=== PATIENT | male | born 1955 | race Caucasian/White ===

== ENCOUNTER 2016-11-07 18:32 | Inpatient (IN) | payer OTHER ==
--- NOTE | ~2016-11-07 | CO ---
Unit #: [id number] #: [id number] Patient: PABLO TUTTLE [id number] [place], [place] [address] [id number] I MR#: [id number] NAME: PABLO TUTTLE ROOM: 549 Age: 61 Sex: M Admission Date: 11/07/2016 : 1955 Attending Physician: Rosa M Patten M.D. Consultation Date: 11/09/2016 CONSULTATION REPORT DICTATED FOR Dr. Denisse Mckinney of [facility]. REASON FOR CONSULTATION Atrial fibrillation. HISTORY OF PRESENT ILLNESS The patient is a 61-year-old white male with a history of cirrhosis; questionable history of TB; arthritis; chronic back pain; the patient has tobacco abuse; history of heroin, cocaine, and methamphetamines. Although, the patient does not see a medical professional and has not seen a doctor in many years he states. The patient presented to the [facility] ED on 11/07/2016 at 5:00 p.m. with complaints of back pain, cough, fever of 100.4, shortness of breath, and right-sided chest pain as well as a productive cough with whitish yellowish sputum. The patient also complains of some diarrhea prior to admission. The patient was found to have pneumonia, was thought to be septic, and urinary tract infection with gram-negative rods. The patient also has diagnosed with acute kidney injury that has resolved, elevated liver enzymes which are improving. The patient also has rhabdomyolysis and malnutrition. The patient states that he lives in his car and has for about the past year. He does not see any medical tech regularly. Echo done on 11/08/2016 showed an EF of 55%, thickened anterior mitral leaflet, mild TR with an RVSP of 26. The patient has not had any other cardiac workup that he can remember. The patient has been noted to be in sinus rhythm since admission and roughly at 6:00 a.m. this morning, the patient was noted to be in AFib. A 12-lead EKG was obtained and did confirm the patient is in atrial fibrillation with RVR with a rate of 118. PAST MEDICAL HISTORY 1. Cirrhosis. 2. History of TB questionable. 3. Arthritis. 4. Chronic back pain. PAST SURGICAL HISTORY Includes, 1. Left index finger surgery. 2. Broken jaw surgery. 3. Distal right index finger amputation. Unit #: [id number] #: [id number] Patient: PABLO TUTTLE SOCIAL HISTORY Positive for tobacco. Positive for heroin, cocaine, and methamphetamines. The patient denies any alcohol abuse. The patient lives in his car, where he occasionally goes to a friend's house to take a shower. He has lived in his car for about the past year. FAMILY HISTORY The patient is unsure of any family history of coronary artery disease. REVIEW OF SYSTEMS See HPI. PHYSICAL EXAMINATION GENERAL: This is a 61-year-old white male, who is alert and oriented x3, in no apparent distress. VITAL SIGNS: Blood pressure 140/80, temperature 98.5, respirations 16, and pulse 107. HEENT: Pupils are equal, round, and reactive. Oral mucosa is moist. NECK: No JVD. No thyromegaly. No lymphadenopathy. No carotid bruits. HEART: S1, S2. No S3 or S4. No clicks, no rubs, no murmurs. LUNGS: Diminished rhonchi in the bases. ABDOMEN: Soft, bowel sounds positive, nontender, and nondistended. EXTREMITIES: No swelling. NEUROLOGIC: No neuro deficits noted. DIAGNOSTIC STUDIES LABORATORY RESULTS: Include BNP of 243 and then 148. HIV was nonreactive. Strep pneumo antigen in the urine was positive. UA had positive leukocyte. Urine culture showed gram-negative rods. Urine drug screen was positive for opiates and amphetamines. Lactic was 4.5, then 2.6, then 4, then 3, then 1.3. Blood cultures, positive for Staph aureus. Troponin 0.06, then less than 0.05, then 0.04, then 0.03. Sodium 134, potassium 4, chloride 103, CO2 of 23, BUN 27, creatinine 0.7, glucose 90. White count 11, hemoglobin 12.9, hematocrit 37.6, platelets 136. IMAGING STUDIES: MRI showed mild grade 1 spondylolisthesis of L4 and L5. Mild marrow edema at the L5 level. Chest x-ray did not show any kind of pulmonary edema. CARDIOVASCULAR STUDIES: EKG showed an EF of 55% with a thickened anterior mitral leaflet. No evidence of MR. No pericardial effusion with mild TR with RVSP of 26. HOME MEDICATIONS There are no home medications listed. ALLERGIES Pyridium. IMPRESSION 1. Pneumonia. 2. Urinary tract infection. 3. New-onset atrial fibrillation. 4. Acute kidney injury. 5. Elevated LFTs. 6. Rhabdomyolysis. 7. Protein malnutrition. Unit #: [id number] #: [id number] Patient: PABLO TUTTLE PLAN We will plan to repeat blood cultures. We will check thyroid functions today. The patient has already been started on low-dose Coreg. We will place parameters to hold Coreg. We will plan for a MEGAN tomorrow to evaluate for any possible infection in the heart. We will obtain a fasting lipid profile tomorrow. We will recheck EKG as well as labs in the morning. bog worker to see the patient to help with medications. We will increase Lovenox to therapeutic subcu dose for now. No long-term need for anticoagulation due to low CHADS score at this time as well as any questionable compliance issues. The patient states that he does not get medications, so that he can get his drugs. Thank you for having us to see this patient. Further recommendations pending current workup. Dictated by... KYARA Casas TD: 11/10/2016 03:45 JOB #: [id number] CONSULTATION REPORT X X CONSULTATION REPORT
--- NOTE | ~2016-11-07 | HP ---
Unit #: [id number] #: [id number] Patient: PABLO TUTTLE [id number] [address] [place], [place] [address] [id number] I MR#: [id number] NAME: PABLO TUTTLE ROOM: 06214 Age: 61 Sex: M Admission Date: 11/07/2016 : 1955 Attending Physician: Dang Retana M.D. Primary Care Physician: No Primary Care Physician HISTORY AND PHYSICAL CHIEF COMPLAINT Weakness, back pain, cough, fever, shortness of breath. DISCUSSION This is a 61-year-old gentleman who has a past medical history significant for history of cirrhosis, history of questionable tuberculosis, (inactive, was told 4 years ago), arthritis, chronic back pain, history of polysubstance abuse. He was brought to the emergency room with the chief complaint of back pain, weakness, unable to walk. He was found to have fever of 104.2. He said that he feels very sick, had been having back pain, fever, cough, shortness of breath. He described shortness of breath, whitish/yellowish phlegm, cough. He said, again, he feels very sick. Also, he said he had been having back pain but denies nausea, vomiting, diarrhea, blood in the stool, headache or any other complaint. PAST MEDICAL HISTORY 1. History of cirrhosis. 2. Questionable history of tuberculosis. 3. History of arthritis. 4. Chronic back pain, degenerative disk disease of spine. PAST SURGICAL HISTORY 1. Left index finger amputation. 2. History of surgery for broken jaw. 3. Distal right index finger amputation. MEDICATIONS We did call the pharmacy. Not taking any medications for one year. Did not fill any medications for one year. ALLERGIES Pyridium. SOCIAL HISTORY He said he smokes 1 pack daily. Also uses heroin, cocaine, methamphetamine. Denies alcohol. He said he used these drugs 2 days ago. REVIEW OF SYSTEMS A 14-point review of systems is negative except as in history of present illness. FAMILY HISTORY Negative for his presenting illness. Unit #: [id number] #: [id number] Patient: PABLO TUTTLE PHYSICAL EXAMINATION GENERAL: Middle-aged man lying in bed comfortably. Currently not in any distress. CURRENT VITALS: His current temperature is 104.2, heart rate 116, respiratory rate 16, blood pressure 144/78, oxygen saturation 100%. HEENT: Pupils are equal and reactive to light and accommodation. Head is normocephalic and atraumatic. Pharynx normal. NECK: Neck is supple. No JVD. HEART: S1, S2. Tachycardia. LUNGS: Bilateral rhonchi positive. ABDOMEN: Abdomen is soft, nontender, nondistended. Bowel sounds are positive. SKIN: No lesions. Normal color. Warm. Dry. No rash. NEUROLOGIC: He is alert, oriented x2. Cranial nerves II-XII intact. Normal motor, 4/5 motor power on both sides. PSYCHIATRIC: He has flat affect. DIAGNOSTIC STUDIES LABORATORY WORKUP: Troponin less than 0.05. Urine toxicology is positive for amphetamine, positive for opiate. UA shows cloudy appearance, leukocyte esterase trace, WBC 2-5. Chemistry - Sodium 127, potassium 4.2, glucose 170, BUN 60, creatinine 3.4. CK total 8,462, albumin 3, lipase 16, magnesium 1.6. HIV nonreactive. BNP 243. Lactic acid level 4.5. White count 10, hemoglobin 16, hematocrit 47, platelets 170. Troponin less than 0.06. INR 1.3. ABG shows pH 7.4, pCO2 32, O2 59. IMAGING: Chest x-ray shows bilateral infiltrate right mid-lower lung zone and left lung infiltrate. MRI of the lumbar spine shows mild multilevel degenerative disk disease. Mild spondylosis. Negative for any sepsis. ASSESSMENT 1. Septic shock. 2. Pneumonia. 3. Acute kidney injury. 4. UTI. 5. Acute rhabdomyolysis. 6. Hyponatremia. 7. History of cirrhosis. 8. Chronic back pain. 9. Polysubstance abuse. PLAN 1. Admit to ICU. 2. Ask pulmonary, Dr. Multani, to evaluate and nephrology, Dr. Rojas, to evaluate. 3. Will start the patient on Zosyn 3.375 grams IV q.8 hours, vancomycin pharmacy to dose. The patient received 1 dose of tobramycin. 4. Start on IV fluid with normal saline and sepsis protocol. 5. Start the patient also on DuoNeb q.4 hours. 6. Will get two-D echo to rule out endocarditis. 7. Start the patient on Lovenox for DVT prophylaxis 30 "mL per hour." 8. Repeat electrolytes in the morning. Dictated by Unit #: [id number] #: [id number] Patient: PABLO TUTTLE M.D. RKG/jaydon TD: 11/08/2016 10:39 JOB #: [id number] HISTORY AND PHYSICAL X X HISTORY AND PHYSICAL
--- NOTE | ~2016-11-07 | CO ---
Unit #: [id number] #: [id number] Patient: PABLO TUTTLE [id number] [address] [place], [place] [address] [id number] I MR#: [id number] NAME: PABLO TUTTLE ROOM: 549 Age: 61 Sex: M Admission Date: 11/07/2016 : 1955 Attending Physician: Dang Retana M.D. Consultation Date: 11/08/2016 CONSULTATION REPORT REASON FOR CONSULTATION Acute kidney injury. Thank you very much for this consultation. HISTORY OF PRESENT ILLNESS The patient is a 61-year-old, white male, who carries a past medical history of polysubstance abuse, cirrhosis, chronic arthritis, and possible history of tuberculosis, who presented to the emergency room with fever, weakness, and malaise, which has been progressive over the past few days. He states he has had some nausea. No vomiting. He has not had any diarrhea. He has had shortness of breath with productive cough along with his fevers. Upon admission, he was noted to have a significant acute kidney injury with BUN of 60 and creatinine 3.4. He denies any history of chronic kidney disease. He states that as a child, he had some sort of a kidney problem that required surgery. However, he is not sure of the specifics. He otherwise denies any hematuria or dysuria. No NSAID use. No other complaints. PAST MEDICAL HISTORY As outlined in the HPI. HOME MEDICATIONS Per his med rec. FAMILY HISTORY Noncontributory. SOCIAL HISTORY Has a history of polysubstance abuse. REVIEW OF SYSTEMS Twelve system review of systems is negative except as per HPI. PHYSICAL EXAMINATION VITAL SIGNS: His blood pressure is 124/78, heart rate 77, respirations 17, T current 97.4. GENERAL: He is a disheveled male, in no acute distress. HEENT: Head, normocephalic, atraumatic. ENT, pupils equal, round, and reactive to light. NECK: Supple. No JVD. LUNGS: Coarse bilaterally with scattered rhonchi. HEART: Tachy. No murmurs, gallops, or rubs. ABDOMEN: Soft, nontender, with positive bowel sounds. Unit #: [id number] #: [id number] Patient: PABLO TUTTLE EXTREMITIES: He has no edema. NEUROLOGIC: Cranial nerves II through XII intact to testing. Gait was not assessed. DIAGNOSTIC STUDIES LABORATORY RESULTS: Sodium 128, potassium 4.2, chloride 97, bicarb 20, BUN 56, creatinine 2.3, glucose 204, calcium 7.1. CK of 8400. Lactate of 4. INR 1.3. White count 13.4, hemoglobin 13.8, platelets 151. Lactate 4. INR 1.3. ABG showed a pH of 7.4, pCO2 of 32, pO2 of 59. Tox screen positive for opioids and amphetamines. IMAGING STUDIES: Chest x-ray shows bilateral pneumonia. IMPRESSION 1. Acute kidney injury likely prerenal azotemia versus acute tubular necrosis from sepsis. His renal function has already started improving with volume resuscitation making prerenal azotemia most likely. 2. Hyponatremia. 3. Lactic acidosis. 4. Pneumonia. 5. Hypocalcemia. 6. Polysubstance abuse. 7. Rhabdomyolysis. PLAN Continue volume resuscitation with IV fluids consisting of normal saline at the current time. Continue antibiotics per primary. Avoid nephrotoxins and dose adjust all medications for reduced GFR. Renal ultrasound is pending. We will follow up urinalysis as well and have further recommendations as hospital course progresses. Dictated by... Darren Hutchinson M.D. RENAN/noris TD: 11/08/2016 22:01 JOB #: [id number] CONSULTATION REPORT X Darren Hutchinson MD X CONSULTATION REPORT
--- NOTE | ~2016-11-07 | MR113 ---
[facility] A Service of [facility] & [facility] RADIOLOGY TEXT RESULTS PATIENT: PABLO TUTTLE LOCATION: [facility] 549- : 56 UNIT #: [id number] AGE: [address]: Dang Retana MD SEX: M ORDER DR: [id number] [facility] [address] [facility]. [place], [place] [address] [id number] I MR#: [id number] Acc #: [id number] NAME: PABLO TUTTLE : 1955 SEX: M STUDY DATE/TIME: UNIT: CEDOF ROOM: 08619 STUDY DESCRIPTION: MR Lumbar Wo Contrast Attending Physician: Dang Retana M.D. Ordering Physician: Luci Julien M.D. Primary Care Physician: Primary Care Physician No MEDICAL IMAGING REPORT This report is preliminary unless electronic signature is present EXAM MRI lumbar spine 11/07 at 1951 hours INDICATIONS Weakness and fever for 2 days. Low back pain for 10 years. TECHNIQUE Axial and sagittal multi-sequence images were obtained through the lumbar spine without contrast in a high field strength magnet. COMPARISON No comparison MRI. FINDINGS There is subtle grade 1 anterolisthesis of L4 on L5. Alignment is otherwise normal. The conus terminates at T12 and is normal in caliber and signal intensity. Reactive endplate changes are noted on both sides of the L5-S1 disc. There is some mild edema in the pedicle on the left side at L5. This may indicate a stress reaction. The bone marrow signal is otherwise normal. At L5-S1, there is mild bilateral facet arthropathy. There is a mild posterior broad-based disc bulge. No central canal stenosis is seen. The there is very mild bilateral foraminal narrowing right greater than left. At L4-5, there is hypertrophic facet arthropathy. Broad-based posterior disc bulge is present with some uncovering of the disc. These findings result in mild bilateral neural foraminal narrowing, but no central stenosis. At L3-4, there is bilateral facet arthropathy with mild posterior broad-based disc bulge. This results in mild bilateral neural foraminal narrowing but no central stenosis. [facility] A Service of [facility] RADIOLOGY TEXT RESULTS PATIENT: PABLO TUTTLE LOCATION: C5B 549-01 : 56 UNIT #: [id number] AGE: [address]: Dang Retana MD SEX: M ORDER DR: At L2-3, there is facet arthropathy. No significant disc bulge is seen. No central canal or neural foraminal stenosis. At L1-2, the disc is normal. There is some mild facet disease. There is no central canal or neural foraminal stenosis. The lower 2 thoracic discs are normal on the sagittal images provided. IMPRESSION 1. No fractures are seen. There is mild grade 1 spondylolisthesis at L4-5. 2. Mild marrow edema is noted in the left L5 pedicle. This may reflect a stress reaction. Marrow signal is otherwise within normal limits except for reactive endplate changes at L5-S1. 3. Mild multilevel degenerative disc disease with facet arthropathy as detailed above resulting in relatively mild bilateral neural foraminal narrowing at multiple levels. No central canal stenosis is seen. 4. The conus and cauda equina are normal. Dictated by... Dominick Denney Jr., M.D. THIS IS AN ELECTRONICALLY VERIFIED REPORT Dominick Denney Jr., M.D. at 11/08/2016 9:30 PM RLChava/albaro TD: 11/08/2016 14:22 JOB #: [id number] MEDICAL IMAGING REPORT COPY
--- NOTE | ~2016-11-07 | EKG ---
PATIENT: PABLO TUTTLE UNIT #: [id number] Ventricular Rate: 81 BPM Atrial Rate: 81 BPM P-R Interval: 148 ms QRS Duration: 98 ms Q-T Interval: 366 ms QTC Calculation(Bezet): 425 ms P Bryant: 70 degrees Calculated R Bryant: 78 degrees Calculated T Bryant: 58 degrees Diagnosis Line: Normal sinus rhythm Diagnosis Line: Incomplete right bundle branch block Diagnosis Line: Borderline ECG Diagnosis Line: When compared with ECG of 07-NOV-2016 18:19, Diagnosis Line: (unconfirmed) Diagnosis Line: QT has shortened Diagnosis Line: Confirmed by STEPHEN HOWARD MD ([id number]) on Diagnosis Line: 11/10/2016 4:05:23 PM INTERPRETING MD: LEE ALEJO
--- NOTE | ~2016-11-07 | DS ---
Unit #: [id number] #: [id number] Patient: PABLO TUTTLE [id number] [address] [address] [id number] I MR#: [id number] NAME: PABOL TUTTLE ROOM: 549 Age: 61 Sex: M Admission Date: 11/07/2016 : 1955 Discharge Date: 11/11/2016 Attending Physician: Rosa M Patten M.D. Primary Care Physician: Primary Care Physician No DISCHARGE SUMMARY ADDENDUM Please note, the patient contacted me after the last dictation. Outpatient antibiotics at short-stay were arranged and I did order a 2-gram IV Rocephin prior to discharge but patient did not wait for this medication; thus, he has been inadequately treated today with antibiotics. He did not wait for his discharge instructions. I believe he did not wait for his prescriptions and is high risk for readmission. Though discharged and paperwork was done, it was not signed by patient and in my opinion he left the hospital against medical advice. Dictated by... Rosa M Patten M.D. MICHAEL/sarika TD: 11/11/2016 17:07 JOB #: [id number] DISCHARGE SUMMARY X RosaM Patten MD X DISCHARGE SUMMARY
--- NOTE | ~2016-11-07 | US77 ---
[facility] A Service of [facility] & [facility] RADIOLOGY TEXT RESULTS PATIENT: PABLO TUTTLE LOCATION: C5B 549-01 : 57 UNIT #: [id number] AGE: [address]: Rosa M Patten MD SEX: M ORDER DR: [id number] [facility] [address] [facility]. [place], [place] [address] [id number] I MR#: [id number] Acc #: [id number] NAME: PABLO TUTTLE : 1955 SEX: M STUDY DATE/TIME: 11/08/2016 8:19 UNIT: C5B ROOM: [facility] STUDY DESCRIPTION: US Kidney Bilateral Complete Attending Physician: Dang Retana M.D. Ordering Physician: Dominick Agarwal M.D. Primary Care Physician: Primary Care Physician No MEDICAL IMAGING REPORT This report is preliminary unless electronic signature is present EXAM Renal ultrasound. INDICATIONS Back pain for 5-6 days. Patient has a GFR of 31 and creatinine 2.3. TECHNIQUE Bradley-scale and color Doppler sonographic images were obtained through the kidneys and bladder. FINDINGS Both kidneys are normal in appearance with no solid or cystic renal masses seen. There is no hydronephrosis. Urinary bladder is not well assessed, as it is decompressed with a Florez catheter. Patient is incidentally noted to have 2 echogenic foci within the right lobe of the liver. The larger measures up to 1.9 x 2.6 x 1.7 cm, while the smaller measures about 1.3 x 0.9 x 1.1 cm. On the prior CTs dating back to 2011, this patient has been noted to have enhancing foci throughout the liver. 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 As has been discussed on prior examinations, further evaluation with liver protocol CT or MRI on a non-emergent outpatient basis is recommended to exclude malignancy. IMPRESSION 1. Normal appearance to the kidneys bilaterally. 2. Bladder cannot be assessed due to presence of a Florez catheter. 3. This patient has 2 hyperechoic foci within the liver. On prior CTs dating back to 2011, this patient has had enhancing foci within the liver which were felt to be most in keeping with hemangiomata but were incompletely evaluated on those examinations. Further evaluation with liver protocol CT or MRI on a non-emergent outpatient [facility] A Service of [facility] & [facility] RADIOLOGY TEXT RESULTS PATIENT: PABLO TUTTLE LOCATION: [facility] 549-01 : [birth year] UNIT #: [id number] AGE: [address]: Rosa M Patten MD SEX: M ORDER DR: basis is recommended. Dictated by... Winter Guerrero M.D. THIS IS AN ELECTRONICALLY VERIFIED REPORT Winter Guerrero M.D. at 11/10/2016 9:17 AM AFF/psc TD: 11/08/2016 19:58 JOB #: [id number] MEDICAL IMAGING REPORT COPY
--- NOTE | ~2016-11-07 | DS ---
Unit #: [id number] #: [id number] Patient: PABLO TUTTLE [id number] [address] [address] [id number] I MR#: [id number] NAME: PABLO TUTTLE ROOM: 549 Age: 61 Sex: M Admission Date: 11/07/2016 : 1955 Discharge Date: 11/11/2016 Attending Physician: Rosa M Patten M.D. Primary Care Physician: No Primary Care Physician DISCHARGE SUMMARY PRINCIPAL DIAGNOSES 1. Septic shock secondary to multiple infections. 2. Methicillin sensitive Staphylococcus aureus bacteremia secondary to intravenous drug abuse. 3. Bilateral lower lobe pneumonia with Strep pneumoniae. 4. Escherichia coli urinary tract infection. 5. Atrial fibrillation with rapid ventricular response, now converted to normal sinus rhythm. 6. Lactic acidosis now resolved. 7. Polysubstance abuse including heroin, cocaine and methamphetamine. 8. Tobaccoism. 9. Acute kidney injury, prerenal now resolved, discharge creatinine 0.9. 10. Acute rhabdomyolysis secondary to amphetamine abuse now resolved. 11. Transaminitis resolved. 12. Hypocalcemia. 13. Diarrhea secondary to infection, plus or minus opiate withdrawal now resolved. 14. Cirrhosis with pending viral hepatitis panel. 15. Thrombocytopenia stable. 16. Moderate protein malnutrition. 17. Tobaccoism. 18. Systolic congestive heart failure, acute with ejection fraction of 45%. CONSULTANTS Dr. Manrique, pulmonology; Dr. Palacio, Infectious disease; Dr. Wahl, nephrology; Dr. Mckinney, cardiology. PROCEDURES 1. 2-Dimensional echocardiogram on 11/08/2016 with ejection fraction of 55%. No evidence of mitral regurgitation. 2. Transesophageal echocardiogram on 11/10/2016 with ejection fraction of approximately 45%. There is spontaneous echo contrast in the right and left atria. No evidence of clot in left atrial appendage. No evidence of PFO or atrial septal defect. Mild to moderate mitral and tricuspid regurgitation. No evidence of vegetation. Moderate atherosclerosis of aorta noted. 3. Chest x-ray on 11/07/2016 with extensive air space disease in the right mid to lower lung zone with dense opacification in the right lower lung zones greater than left. There is severe bilateral pneumonia noted. 4. MRI of the lumbar spine without contrast on 11/07/2016 with no evidence of fracture. There is grade 1 spondylolisthesis at L4-5. There is mild marrow edema in the L5 pedicle that is felt to be stress Unit #: [id number] #: [id number] Patient: PABLO TUTTLE reaction. Multilevel degenerative disc disease with facet arthroplasty noted. No evidence of canal stenosis. 5. Bilateral renal ultrasound on 11/08/2016 with normal appearance of the kidney. There is hemangioma in the liver. CLINICAL HISTORY AND HOSPITAL COURSE Mr. Tuttle is a 61-year-old homeless male who presents to the emergency department with complaints of cough, fever, and back pain. In the emergency department he is found to have a fever of greater than 104. Chest x-ray revealed significant bilateral pneumonia right greater than left. Per his procalcitonin was also found to be significantly elevated at greater than 188. The patient was placed on aggressive IV fluids in addition to antibiotics and initially admitted to the ICU. Fortunately with antibiotic therapy and IV hydration, the patient's blood pressure and signs and symptoms significantly improved and he was subsequently transferred to telemetry from the ER. Urine strip pneumo antigen was ultimately positive and again patient was continue on antibiotics. Urinalysis was also concerning for infection and urine culture also grew E. coli. Blood cultures done upon admission; however, revealed methicillin sensitive Staph aureus, indicating patient had multiple and significant infections. His pneumonia clinically appears to be resolving and his urinary tract infection is being adequately treated. He did undergo a MEGAN given his findings of MSSA in the blood but this is negative for endocarditis. ID was consulted and is recommending antibiotics therapy as outlined below. I will note, patient had an MRI given his complaints of back pain upon presentation but abnormal findings are not felt to represent any sort of underlying osteomyelitis and sed rate was only mildly elevated at 55, making osteomyelitis less likely. Pulmonology was consulted given there was initial concerns about admission to the ICU. From a pulmonary standpoint the patient remains stable. Nephrology was consulted given patient's acute kidney injury. Upon presentation his creatinine was 3.4 but with hydration creatinine was normalized. A urinalysis reveals only 1+ protein. His renal function will be followed up as an outpatient. During hospitalization the patient developed some tachycardia, which initially appeared to be sinus tachycardia but ultimately patient converted to atrial fibrillation. He was placed on low dose Coreg and cardiology evaluated the patient. At this point he is now converted back to normal sinus rhythm on Coreg and he will be maintained on Coreg. I am going to send him home on aspirin therapy. Will discuss with cardiology sending him home on aspirin therapy. He is a poor candidate for anticoagulation due to his polysubstance abuse and poor compliance. Patient is otherwise today clinically much much improved and will be discharge home with IV antibiotics. DISCHARGE CONDITION Stable. DISCHARGE STATUS Discharge to home. DISCHARGE MEDICATIONS 1. Rocephin 2 IV q. 24 hours x12 doses. Patient's last dose will be on Unit #: [id number] #: [id number] Patient: PABLO TUTTLE 11/23/2016. 2. Coreg 12.5 mg p.o. b.i.d. with one refill given. 3. Lisinopril 2.5 mg daily. 4. Os-Mike 500 plus D, one twice daily. DISCHARGE INSTRUCTIONS The patient was instructed to follow a heart healthy diet. He is to refrain from any further tobacco use and IV drug abuse. He can increase activity as tolerated. FOLLOWUP The patient is being established with medicaid and will followup with assigned practitioner. [facility] is [facility]. TIME SPENT ON DISCHARGE 37 minutes. Dictated by... Rosa M Patten M.D. MICHAEL/alfredo TD: 11/11/2016 12:12 JOB #: [id number] DISCHARGE SUMMARY X Rosa M Patten MD X DISCHARGE SUMMARY
--- NOTE | ~2016-11-07 | EKG ---
PATIENT: PABLO TUTTLE UNIT #: [id number] Ventricular Rate: 118 BPM Atrial Rate: 105 BPM QRS Duration: 98 ms Q-T Interval: 292 ms QTC Calculation(Bezet): 409 ms Calculated R [place]: 72 degrees Calculated T [place]: 65 degrees Diagnosis Line: Atrial fibrillation with rapid ventricular Diagnosis Line: response Diagnosis Line: Incomplete right bundle branch block Diagnosis Line: Abnormal ECG Diagnosis Line: When compared with ECG of 09-NOV-2016 06:06, Diagnosis Line: (unconfirmed) Diagnosis Line: Incomplete right bundle branch block is now Diagnosis Line: Present Diagnosis Line: Confirmed by STEPHEN HOWARD MD ([id number]) on Diagnosis Line: 11/10/2016 4:10:56 PM INTERPRETING MD: LEE ALEJO
--- NOTE | ~2016-11-07 | EKG ---
PATIENT: PABLO TUTTLE UNIT #: [id number] Ventricular Rate: 134 BPM Atrial Rate: 134 BPM P-R Interval: 192 ms QRS Duration: 86 ms Q-T Interval: 272 ms QTC Calculation(Bezet): 406 ms P [place]: 99 degrees Calculated R [place]: 67 degrees Calculated T [place]: 62 degrees Diagnosis Line: Diagnosis Line: Atrial fibrillation Diagnosis Line: When compared with ECG of 08-NOV-2016 18:39, Diagnosis Line: (unconfirmed) Diagnosis Line: Diagnosis Line: Diagnosis Line: Vent. rate has increased BY 53 BPM Diagnosis Line: Incomplete right bundle branch block is no longer Diagnosis Line: Present Diagnosis Line: Confirmed by STEPHEN HOWARD MD ([id number]) on Diagnosis Line: 11/10/2016 4:07:50 PM INTERPRETING MD: LEE ALEJO
--- NOTE | ~2016-11-07 | CO ---
Unit #: [id number] #: [id number] Patient: PABLO TUTTLE [id number] [address] [address] [id number] I MR#: [id number] NAME: PABLO TUTTLE ROOM: 549 Age: 61 Sex: M Admission Date: 11/07/2016 : 1955 Attending Physician: Rosa M Patten M.D. Primary Care Physician: No Primary Care Physician Consultation Date: 11/10/2016 CONSULTATION REPORT REASON FOR CONSULTATION Antibiotic management and questionable discitis. HISTORY OF PRESENT ILLNESS This is a 61-year-old male that comes to the hospital after a several day history of right sided chest pain, shortness of breath, productive sputum with yellow phlegm and back pain. When he was in the emergency room, he was found to have a fever or greater than 104 degrees Fahrenheit. He was also noted to have some acute kidney injury and rhabdomyolysis. The patient was admitted to the hospital. He was placed on vancomycin and Zosyn. Workup revealed that patient had bilateral pneumonia per the chest film and Staph aureus in his blood stream and questionable urinary tract infection. ID was asked to evaluate for further management and antibiotic assistance. PAST MEDICAL HISTORY Includes: 1. Polysubstance abuse including heroin several days prior to admission. 2. He also says that he has positive tobacco and alcohol abuse. 3. Questionable TB in the past that he was told several years ago. 4. Liver cirrhosis. 5. Arthritis. 6. Chronic back pain. PAST SURGICAL HISTORY Includes: 1. Left index finger amputation. 2. History of a broken jaw. 3. Right finger amputation. ALLERGIES Pyridium. MEDICATIONS Vancomycin and Zosyn. For other medications, please refer to patient's MAR. SOCIAL HISTORY The patient does have tobacco abuse, heroin abuse, cocaine abuse, methamphetamine abuse but does not appear to have any recent alcohol abuse. REVIEW OF SYSTEMS The patient denies any fevers since he was in the emergency room. He denies any chills or sweats or chest pain. He denies any sore throat or Unit #: [id number] #: [id number] Patient: PABLO TUTTLE upper respiratory symptoms. He does report some right sided chest pain that has improved with occasional yellow phlegm production and cough. He denies any nausea, vomiting, diarrhea to me at this time. The patient does report some back pain with no back surgery in the past. Denies any swelling or non-healing wounds or pain with urination. PHYSICAL EXAMINATION VITAL SIGNS: Temperature is 98.7 with a T-max this admission of 104.2. Pulse is 92, blood pressure is 127/87, respiratory rate is 19. GENERAL: This is a no apparent distress male who is resting in the bed comfortably. He does appear somewhat ill. HEENT/NECK: His pupils are equal. His neck is supple. CARDIOVASCULAR: S1, S2 with a regular rhythm. PULMONARY: Scattered rhonchi noted. No wheezes. ABDOMEN: Positive bowel sounds. Soft and nontender. EXTREMITIES: No clubbing, cyanosis or edema. DIAGNOSTIC STUDIES LABORATORY: BUN 25, creatinine 0.9 which is improved from 3.4 on admission. Sodium 138, potassium 5.0, chloride 103, CO2 26, bilirubin 1.0, AST 153, ALT 105. CK total of 2270 which is improved from 8462 on admission. Lactic acid 1.3. Procalcitonin 188.53. Alcohol less than 5. WBC 11, hemoglobin 13.4, hematocrit 39.9, platelets 149. HIV was negative. Flu swab was negative. Urinalysis shows 0-2 WBCs, 4+ bacteria, negative nitrites. MICROBIOLOGY: Three sets of blood cultures are pending. Three of four urine culture shows E. coli greater than 100,000 colonies. Three of four blood cultures, one of two MSSA. IMAGING: Initial chest film shows extensive airspace disease, right greater than left, consistent with severe bilateral pneumonia. No cavitation is noted. No suspicious nodule is seen. MRI of the lumbar spine shows no fracture seen. Mild spondylosis at L4-5, mild marrow edema at L5 pedicle. Reactive endplate changes at L5-S1. Multi-level degenerative disc disease with facet arthropathy. No central canal stenosis. Ultrasound of the kidneys shows normal appearance of the kidneys bilaterally. Please see full report for complete details. IMPRESSION This is a 61-year-old male with a history of polysubstance abuse, feeling poorly for several days prior to admission. The patient had right sided chest pain, cough and back pain. At this time, would like to treat patient for MSSA bacteremia/sepsis with exact etiology unclear. Agree with MEGAN to evaluate for endocarditis secondary to patient's heroin abuse. The patient does not appear to have any skin lesions or abscesses. Will Unit #: [id number] #: [id number] Patient: PABLO TUTTLE follow up repeat blood cultures. The patient also has suspected aspiration pneumonia/Strep pneumo pneumonia as his Strep pneumo antigen was positive. At this time, patient is well covered with Zosyn. Will continue to follow patient clinically but appears to be breathing better. Patient also has had some back pain. However, MRI of the L-spine does not show any clear osteomyelitis or discitis. The patient is well covered with Zosyn. Would like to DC vancomycin as no MRSA is detected. Will check a CRP and sed rate with the next blood draw and continue to follow patient's CBC. At this time, doubt patient has E. coli urinary tract infection as his urinalysis is unremarkable and has no symptoms of a UTI. The patient's chest x-ray was negative for any kind of cavitated lesion. He does state he has some questionable latent TB. Will discuss with Cher if CT scan of the chest is warranted. His case will be discussed with Dr. Jose Palacio and further recommendations to follow. Dictated by... Orquidea Rodriguez A.P.R.N. for Cher Cohen/indio TD: 11/10/2016 07:47 JOB #: [id number] CONSULTATION REPORT X X CONSULTATION REPORT
--- NOTE | ~2016-11-07 | EKG ---
PATIENT: PABLO TUTTLE UNIT #: [id number] Ventricular Rate: 106 BPM Atrial Rate: 106 BPM P-R Interval: 142 ms QRS Duration: 96 ms Q-T Interval: 368 ms QTC Calculation(Bezet): 488 ms P [place]: 75 degrees Calculated R [place]: 86 degrees Calculated T [place]: 81 degrees Diagnosis Line: Sinus tachycardia Diagnosis Line: Incomplete right bundle branch block Diagnosis Line: Borderline ECG Diagnosis Line: When compared with ECG of 25-FEB-2010 17:26, Diagnosis Line: Incomplete right bundle branch block is now Diagnosis Line: Present Diagnosis Line: Confirmed by STEPHEN HOWARD MD ([id number]) on Diagnosis Line: 11/10/2016 4:01:29 PM INTERPRETING MD: LEE ALEJO
--- NOTE | ~2016-11-07 | CO ---
Unit #: [id number] #: [id number] Patient: PABLO TUTTLE [id number] [address] [address] [id number] I MR#: [id number] NAME: PABLO TUTTLE ROOM: 549 Age: 61 Sex: M Admission Date: 11/07/2016 : 1955 Attending Physician: Dang Retana M.D. Primary Care Physician: No Primary Care Physician Consultation Date: 11/08/2016 CONSULTATION REPORT REASON FOR CONSULT ICU management. HISTORY OF PRESENT ILLNESS This is a 61-year-old male with a past medical history significant for polysubstance abuse, questionable TB and liver cirrhosis, who presented to the emergency room because he was feeling profoundly weak with severe right sided chest pain, weakness and back pain. The patient had a fever or 104 in the emergency room. He was very ill-appearing in the emergency room. The patient stated that he lives alone but he has family around. He has been coughing some yellowish sputum. He felt nauseated but no vomiting or diarrhea. The patient smokes one pack per day. He is not on oxygen at home. REVIEW OF SYSTEMS Twelve point review of systems were obtained and were negative except for what was mentioned in the HPI. PAST MEDICAL HISTORY 1. Cirrhosis. 2. Tuberculosis. 3. Arthritis. 4. Chronic back pain. PAST SURGICAL HISTORY 1. Left index finger amputation. 2. History of surgery for broken jaw. 3. Distal right index finger amputation. HOME MEDICATIONS None. ALLERGIES Pyridium. SOCIAL HISTORY The patient smokes one pack per day. He uses also heroin, cocaine, methamphetamine but he denied any history of alcohol currently. FAMILY HISTORY Noncontributory. Unit #: [id number] #: [id number] Patient: PABLO TUTTLE PHYSICAL EXAMINATION GENERAL: The patient is cachectic and ill-appearing. VITAL SIGNS: Temperature 104, heart rate 120, blood pressure 144/78. HEENT: Atraumatic, normocephalic. PERRLA, EOMI. NECK: Supple. No JVD, no lymphadenopathy. CHEST: Decreased breath sounds bilaterally with fine rhonchi at the left lower lobes. HEART: S1, S2. No murmur, gallops or rubs. ABDOMEN: Soft, nontender. Bowel sounds positive. No hepatosplenomegaly. EXTREMITIES: No edema or cyanosis. SKIN: No rashes. MEDICAL CODER: Awake, alert, oriented x3. No focal motor/sensory deficits. DIAGNOSTIC STUDIES LABORATORY: pO2 is 59 on the blood gas. Creatinine 2.3, CO2 20, magnesium 1.6, white blood count 13.4, hemoglobin 13.8. IMAGING: Admitting chest x-ray is consistent with right lower lobe pneumonia. ASSESSMENT 1. Septic shock, based on lactic acid solely. 2. Pneumonia, likely Gram-positive. 3. Gram-positive bacteremia. 4. Rhabdomyolysis. 5. Acute kidney injury. 6. Hyponatremia. 7. Smoking. 8. Polysubstance abuse. 9. Malnutrition. PLAN 1. The patient is ill-appearing and critical. Will continue aggressive IV hydration and will follow lactic acid and urine output very closely. 2. Stat MRI to rule out osteomyelitis. 3. Broad spectrum antibiotics pending culture and MRI. 4. Bronchodilator and mucolytics. 5. Nicotine patches. 6. DVT prophylaxis. Dictated by... Cher Sierra TD: 11/09/2016 05:53 JOB #: [id number] Unit #: [id number] #: [id number] Patient: PABLO TUTTLE CONSULTATION REPORT X KENRICK RASHID MD X CONSULTATION REPORT
--- NOTE | ~2016-11-07 | EKG ---
PATIENT: PABLO TUTTLE UNIT #: [id number] Ventricular Rate: 110 BPM Atrial Rate: 110 BPM QRS Duration: 82 ms Q-T Interval: 292 ms QTC Calculation(Bezet): 395 ms Calculated R [place]: 63 degrees Calculated T [place]: 60 degrees Diagnosis Line: Atrial fibrillation Diagnosis Line: Abnormal ECG Diagnosis Line: When compared with ECG of 09-NOV-2016 12:44, Diagnosis Line: (unconfirmed) Diagnosis Line: Incomplete right bundle branch block is no longer Diagnosis Line: Present Diagnosis Line: Confirmed by NAKUL SLOAN MD ([id number]) on 11/11/2016 Diagnosis Line: 7:12:57 AM INTERPRETING MD: LUTHER ALEJO
--- NOTE | ~2016-11-07 | CR72 ---
[facility] A Service of [facility] RADIOLOGY TEXT RESULTS PATIENT: PABLO TUTTLE LOCATION: [facility] 549- : [birth year] UNIT #: [id number] AGE: [address]: Rosa M Patten MD SEX: M ORDER DR: [id number] [facility] [address] [place], [place] [address] [id number] I MR#: [id number] Acc #: [id number] NAME: PABLO TUTTLE : 1955 SEX: M STUDY DATE/TIME: 11/07/2016 18:51 UNIT: CEDOF ROOM: [id number] STUDY DESCRIPTION: CR Chest Single View Portable Attending Physician: Dang Retana M.D. Ordering Physician: Luci Julien M.D. Primary Care Physician: No Primary Care Physician MEDICAL IMAGING REPORT This report is preliminary unless electronic signature is present EXAM Portable chest x-ray 11/07/2016 HISTORY Sepsis, short of air. Began 4 days ago. Weakness. TECHNIQUE AP radiograph of the chest is presented. COMPARISON 06/04/2010. FINDINGS The heart is normal in size. The lungs are well-inflated. There is extensive airspace disease in the right ecs-ep-khgud lung zone with areas of dense opacification in the right lower lung zone. Less pronounced but still significant airspace disease at the left lung base. Findings suggest severe bilateral pneumonia right greater than left. Follow up to complete radiographic resolution strongly recommended. No indication of cavitation. No pleural fluid or pneumothorax. No suspicious nodule is seen. Given distribution of airspace disease, correlate with any clinical concern for aspiration. Visualized upper abdomen unremarkable. Bony structures unremarkable. Cardiomediastinal contours within normal limits. Dictated by... Jas Abdul M.D. THIS IS AN ELECTRONICALLY VERIFIED REPORT Jas Abdul M.D. at 11/09/2016 4:25 PM Winnie TD: 11/08/2016 11:24 [facility] A Service of [facility] RADIOLOGY TEXT RESULTS PATIENT: PABLO TUTTLE [id number] [birth year] UNIT #: [id number] AGE: [address]: Rosa M Patten MD SEX: M ORDER DR: JOB #: [id number] MEDICAL IMAGING REPORT COPY
[2016-11-07 18:25] LABS: ARTERIAL BLD GAS O2 SATURATION 89.9 % (90.0-100.0); ARTERIAL BLOOD GAS CARBOXY HB 0.9 %sat (0.0-9.0); ARTERIAL BLOOD GAS HCO3 20.4 mmol/L; ARTERIAL BLOOD GAS MET HB 0.7 %sat (0.0-2.0); ARTERIAL BLOOD GAS PCO2 32.7 mmHg (35.0-45.0); ARTERIAL BLOOD GAS pH 7.404 (7.350-7.450)
[2016-11-07 18:26] LABS: ARTERIAL BLOOD GAS ALLEN TEST NORMAL; ARTERIAL BLOOD GAS ART SITE RIGHT RADIAL; ARTERIAL BLOOD GAS DELIVERY NASAL CANNULA; ARTERIAL BLOOD GAS PO2 59.5 mmHg (80.0-100); ARTERIAL DRAW? YES
[~2016-11-07 18:32] MED LIST: E-MYCIN250 MG PO; FAMOTIDINE PO; FLEXERIL10 MG PO; FLOMAX0.4 M1 PO; KEFLEX500 MG PO; MEDROL4 MG/DOSE- PO; TYLENOL #3 PO; VICODIN 5/500 T1 TAB PO
[2016-11-07 18:48] LABS: BASOPHIL% 0.2 % (0-2.5); EOSINOPHIL% 0.1 % (0.0-7.0); HEMATOCRIT 47.5 % (38.0-50.0); HEMOGLOBIN 16.4 gm/dL (13.0-16.0); LYMPHOCYTE# 0.5 X10e3 (1.0-3.5); LYMPHOCYTE% 4.7 % (17.0-45.0); MEAN CELL VOLUME 87.5 FL (83-96); MEAN CORPUSCULAR HEMOGLOBIN 30.3 PG (28-34); MEAN CORPUSCULAR HGB CONC 34.6 g/dL (30-36); MEAN PLATELET VOLUME 10.1 FL (6.5-11.5); MONOCYTE# 0.4 X10e3 (0-1.0); MONOCYTE% 4.4 % (3.0-12.0); NEUTROPHIL% 90.6 % (40-75); PLATELET COUNT 170 X10e3 (140-420); RED BLOOD COUNT 5.42 X10e (3.90-5.60); RED CELL DISTRIBUTION WIDTH 14.4 % (11.0-15.5)
[2016-11-07 18:55] LABS: INR 1.3; PARTIAL THROMBOPLASTIN TIME 37.7 SECONDS (23.5-31.3)
[2016-11-07 18:56] LABS: DIFF IND YES
[2016-11-07 19:02] LABS: POC - CKMB 60.1 ng/mL (0.0-7.9); POC - TROPONIN 0.06 ng/mL (<=0.05)
[2016-11-07 19:11] LABS: PLATELET ESTIMATE NORMAL (NORMAL); RBC NORMAL YES
[2016-11-07 19:29] LABS: ALKALINE PHOSPHATASE 67 U/L (32-92); ALT (SGPT) 180 U/L (10-40); AST (SGOT) 274 U/L (10-42); BILIRUBIN, DIRECT 0.7 mg/dL (0.0-0.2); BILIRUBIN,INDIRECT 0.9 mg/dL (0.0-0.9); BILIRUBIN,TOTAL 1.6 mg/dL (0.2-2.0); BLOOD UREA NITROGEN 60 mg/dL (9-23); BUN/CREATININE RATIO 17.64; CALCIUM SERUM 7.7 mg/dL (8.4-10.2); CARBON DIOXIDE 21 mmol/L (22-31); CHLORIDE 92 mmol/L (100-111); CPK (CREATINE PHOSPHOKINASE) 8462 IU/L (36-174); CREATININE SERUM 3.4 mg/dL (0.6-1.4); GLOM FILT RATE Estimated 19.7 mL/min (>60); GLUCOSE FASTING 170 mg/dL (70-110); LIPASE 16 U/L (22-51); MAGNESIUM 1.6 mg/dL (1.6-3.0); POTASSIUM 4.5 mmol/L (3.5-5.1); PROTEIN TOTAL SERUM 6.9 g/dL (6.0-8.3); SODIUM 127 mmol/L (135-145)
[2016-11-07 19:30] LABS: ALCOHOL BLOOD <5 mg/dL (0)
[2016-11-07 19:36] LABS: PROCALCITONIN 188.53 NG/ML
[2016-11-07 20:29] LABS: URINE SOURCE CLEAN CATCH
[2016-11-07 20:45] LABS: CULTURE INDICATED? YES; URINE APPEARANCE CLOUDY; URINE BACTERIA AUWI 4+ (NEGATIVE); URINE BLOOD 3+ (NEG); URINE COLOR DK YELLOW; URINE GLUCOSE NEG (NEG); URINE KETONE TRACE (NEG); URINE LEUKOCYTE ESTERASE TRACE (NEG); URINE NITRATE NEG (NEG); URINE PROTEIN 1+ (NEG); URINE SQUAMOUS EPITHELIAL CELL NONE SEEN /[HPF]; UWBCS1 AUWI 0-2 (0-5)
[2016-11-07 20:46] LABS: AMPHETAMINE POS (NEG); BARBITURATES NEG (NEG); BENZODIAZEPINES NEG (NEG); COCAINE NEG (NEG); MARIJUANA NEG (NEG); OPIATES POS (NEG); TRICYCLIC ANTIDEPRESSANTS NEG (NEG); U HYALINE CASTS AUWI 0-2 /[LPF]; U METHADONE NEG (NEG); URINE BILIRUBIN NEG (NEG)
[2016-11-07 21:43] LABS: POC - CKMB 34.7 ng/mL (0.0-7.9); POC - TROPONIN <0.05 ng/mL (<=0.05)
[2016-11-07 22:30] LABS: INFLUENZA A NEG (NEG); INFLUENZA B NEG (NEG)
[2016-11-08 04:50] LABS: BASOPHIL% 0.1 % (0-2.5); EOSINOPHIL% 0.1 % (0.0-7.0); HEMATOCRIT 41.2 % (38.0-50.0); HEMOGLOBIN 13.8 gm/dL (13.0-16.0); LYMPHOCYTE# 0.7 X10e3 (1.0-3.5); LYMPHOCYTE% 5.1 % (17.0-45.0); MEAN CELL VOLUME 87.6 FL (83-96); MEAN CORPUSCULAR HEMOGLOBIN 29.4 PG (28-34); MEAN CORPUSCULAR HGB CONC 33.6 g/dL (30-36); MONOCYTE# 0.5 X10e3 (0-1.0); MONOCYTE% 3.7 % (3.0-12.0); NEUTROPHIL# 12.2 X10e3 (1.5-7.1); PLATELET COUNT 151 X10e3 (140-420); RED CELL DISTRIBUTION WIDTH 14.3 % (11.0-15.5); WHITE BLOOD COUNT 13.4 X10e3 (4.0-10.5)
[2016-11-08 04:51] LABS: DIFF IND NO
[2016-11-08 06:24] LABS: ALBUMIN SERUM 2.4 g/dL (3.5-5.0); BILIRUBIN,TOTAL 1.4 mg/dL (0.2-2.0); BUN/CREATININE RATIO 24.34; CALCIUM SERUM 7.1 mg/dL (8.4-10.2); CREATININE SERUM 2.3 mg/dL (0.6-1.4); POTASSIUM 4.2 mmol/L (3.5-5.1); PROTEIN TOTAL SERUM 5.8 g/dL (6.0-8.3)
[2016-11-08 06:57] LABS: %MB 0.7 % (0.0-4.0); MB 32.1 ng/ml
[2016-11-08 19:28] LABS: %MB 0.6 % (0.0-4.0); MB 20.8 ng/ml
[2016-11-09 05:58] LABS: HEMATOCRIT 37.6 % (38.0-50.0); HEMOGLOBIN 12.9 gm/dL (13.0-16.0); MEAN CELL VOLUME 87.1 FL (83-96); MEAN CORPUSCULAR HEMOGLOBIN 29.8 PG (28-34); MEAN CORPUSCULAR HGB CONC 34.3 g/dL (30-36); MEAN PLATELET VOLUME 9.7 FL (6.5-11.5); RED BLOOD COUNT 4.32 X10e (3.90-5.60); RED CELL DISTRIBUTION WIDTH 14.2 % (11.0-15.5)
[2016-11-09 06:35] LABS: ALBUMIN SERUM 2.3 g/dL (3.5-5.0); ALKALINE PHOSPHATASE 52 U/L (32-92); ALT (SGPT) 121 U/L (10-40); AST (SGOT) 173 U/L (10-42); BLOOD UREA NITROGEN 27 mg/dL (9-23); BUN/CREATININE RATIO 38.57; CALCIUM SERUM 7.6 mg/dL (8.4-10.2); CARBON DIOXIDE 23 mmol/L (22-31); CHLORIDE 103 mmol/L (100-111); CPK (CREATINE PHOSPHOKINASE) 3297 IU/L (36-174); CREATININE SERUM 0.7 mg/dL (0.6-1.4); GLOM FILT RATE Estimated ABOVE60 mL/min (>60); GLUCOSE FASTING 90 mg/dL (70-110); PROTEIN TOTAL SERUM 5.5 g/dL (6.0-8.3); SODIUM 134 mmol/L (135-145)
[2016-11-09 08:59] LABS: LEGIONELLA AG URINE NEG (NEG)
[2016-11-09 15:54] LABS: FREE T3 3.1 pg/mL (2.5-3.9)
[2016-11-09 15:56] LABS: FREE THYROXIN (T4) 1.07 ng/dL (0.58-1.64)
[2016-11-10 05:31] LABS: HEMATOCRIT 39.9 % (38.0-50.0); HEMOGLOBIN 13.4 gm/dL (13.0-16.0); MEAN CELL VOLUME 87.8 FL (83-96); MEAN CORPUSCULAR HEMOGLOBIN 29.4 PG (28-34); MEAN CORPUSCULAR HGB CONC 33.5 g/dL (30-36); MEAN PLATELET VOLUME 9.5 FL (6.5-11.5); RED BLOOD COUNT 4.55 X10e (3.90-5.60); RED CELL DISTRIBUTION WIDTH 14.4 % (11.0-15.5); WHITE BLOOD COUNT 11.1 X10e3 (4.0-10.5)
[2016-11-10 06:37] LABS: ALBUMIN SERUM 2.1 g/dL (3.5-5.0); ALKALINE PHOSPHATASE 53 U/L (32-92); ALT (SGPT) 105 U/L (10-40); AST (SGOT) 143 U/L (10-42); BLOOD UREA NITROGEN 25 mg/dL (9-23); BUN/CREATININE RATIO 27.77; CALCIUM SERUM 8.4 mg/dL (8.4-10.2); CARBON DIOXIDE 26 mmol/L (22-31); CHLORIDE 103 mmol/L (100-111); CHOLESTEROL 83 mg/dL (0-200); CPK (CREATINE PHOSPHOKINASE) 2270 IU/L (36-174); CREATININE SERUM 0.9 mg/dL (0.6-1.4); GLOM FILT RATE Estimated ABOVE60 mL/min (>60); GLUCOSE FASTING 82 mg/dL (70-110); HDL CHOLESTEROL 11 mg/dL (29-75); LDL CHOLESTEROL 43 mg/dL (-130); LDL/HDL RATIO 4 RATIO (0-4); MAGNESIUM 1.5 mg/dL (1.6-3.0); PHOSPHOROUS 2.2 mg/dL (2.5-4.6); PROTEIN TOTAL SERUM 4.9 g/dL (6.0-8.3); SODIUM 138 mmol/L (135-145); TRIGLYCERIDES 147 mg/dL (10-160)
[2016-11-11] MEDS ORDERED: COREG12.5 MG PO (13:18)
[2016-11-11] MEDS ORDERED: ZESTRIL2.5 M1 PO (13:19)
[2016-11-11] MEDS ORDERED: CALCIUM 500 +1 EAC5 PO (13:19)
[2016-11-11] MEDS ORDERED: ROCEPHIN2 G/VIAL INJ (13:21)
[2016-11-13 09:06] LABS: HA AB IGM (HEPPAN) Nonreactive (Nonreactive); HB CORE AB IGM (HEPPAN) Nonreactive (Nonreactive); HB S AG (HEPPAN) Nonreactive (Nonreactive); HEP C AB (HEPPAN) Reactive (Nonreactive)
== END 2016-11-11 14:31 | disposition left against medical advice (07) | DRG 871 ==
LOC: CED 18:32 → CEDOF 22:50 → C5B 11-08 17:26
PROVIDERS: Emergency Medicine; Internal Medicine; Internal Medicine Cardiovascular Disease
PROC: B246YZZ Ultrasonography of Right and Left Heart using Other Contrast (ICD-10-PCS; principal; 2016-11-08)
PROC: B246YZZ Ultrasonography of Right and Left Heart using Other Contrast (ICD-10-PCS; 2016-11-08)
DX: A41.02 Sepsis due to Methicillin resistant Staphylococcus aureus (principal); R65.21 Severe sepsis with septic shock; N17.0 Acute kidney failure with tubular necrosis; I50.21 Acute systolic (congestive) heart failure; E87.2 Acidosis; J13 Pneumonia due to Streptococcus pneumoniae; D69.6 Thrombocytopenia, unspecified; E44.0 Moderate protein-calorie malnutrition; E87.1 Hypo-osmolality and hyponatremia; M62.82 Rhabdomyolysis; N39.0 Urinary tract infection, site not specified; I48.91 Unspecified atrial fibrillation; F17.210 Nicotine dependence, cigarettes, uncomplicated; Z88.8 Allergy status to other drugs, medicaments and biological substances; B96.20 Unspecified Escherichia coli [E. coli] as the cause of diseases classified elsewhere; F15.10 Other stimulant abuse, uncomplicated; F11.10 Opioid abuse, uncomplicated; F14.10 Cocaine abuse, uncomplicated; K74.60 Unspecified cirrhosis of liver; Z89.022 Acquired absence of left finger(s); R13.11 Dysphagia, oral phase
CPT/HCPCS: 36415; 36600; 51702; 71010; 72148; 76770; 80048; 80053; 80061; 80074; 80076; 80202; 80307; 81003; 82306; 82308; 82330; 82550; 82553; 82803; 82947; 83605; 83690; 83735; 83880; 84100; 84439; 84443; 84481; 84484; 85025; 85027; 85610; 85652; 85730; 86140; 87040; 87077; 87086; 87088; 87186; 87449; 87522; 87804; 87806; 87899; 92523-GN; 92610; 93005; 93306; 93312; 94640; 94760; 96365; 96366; 96367; 97116; 97163; 97530; 99285; 99291; G0480; J0610; J0696; J1650; J1885; J2250; J2405; J2543; J3010; J3260; J3370; J3475; J3490

== ENCOUNTER 2016-11-12 20:56 | Emergency (ER) | payer OTHER ==
--- NOTE | ~2016-11-12 | CR63 ---
[facility] A Service of [facility] & [facility] RADIOLOGY TEXT RESULTS PATIENT: PABLO TUTTLE LOCATION: [facility] : 57 UNIT #: [id number] AGE: [address]: Nikhil Mac MD SEX: M ORDER DR: [id number] [facility] [address] [place] [address] [facility] [place], [place] [address] [id number] MR#: [id number] Acc #: [id number] NAME: PABLO TUTTLE : 1955 SEX: M STUDY DATE/TIME: 11/12/2016 21:18 UNIT: [facility] ROOM: STUDY DESCRIPTION: CR Chest 2 View Attending Physician: Nikhil Mac M.D. Ordering Physician: Nikhil Mac M.D. Primary Care Physician: No Primary Care Physician MEDICAL IMAGING REPORT This report is preliminary unless electronic signature is present EXAM Chest PA and lateral 11/12/2016. HISTORY Cough and left side chest pain for 4 days. FINDINGS The heart is normal in size. Infiltrates at the lung bases have decreased slightly. The upper lungs are clear. There are no pleural effusions. IMPRESSION Slight decrease in the bibasilar pneumonia compared with 11/07/2016. Dictated by... Anshu Hernandes M.D. THIS IS AN ELECTRONICALLY VERIFIED REPORT Anshu Hernandes M.D. at 11/13/2016 2:56 PM KRT/gz TD: 11/13/2016 08:48 JOB #: [id number] MEDICAL IMAGING REPORT COPY
--- NOTE | ~2016-11-12 | EKG ---
PATIENT: PABLO TUTTLE UNIT #: [id number] Ventricular Rate: 68 BPM Atrial Rate: 68 BPM P-R Interval: 152 ms QRS Duration: 96 ms Q-T Interval: 428 ms QTC Calculation(Bezet): 455 ms P [place]: 64 degrees Calculated R [place]: 59 degrees Calculated T [place]: 53 degrees Diagnosis Line: Normal sinus rhythm Diagnosis Line: Incomplete right bundle branch block Diagnosis Line: Borderline ECG Diagnosis Line: When compared with ECG of 10-NOV-2016 06:21, Diagnosis Line: Sinus rhythm has replaced Atrial fibrillation Diagnosis Line: Vent. rate has decreased BY 42 BPM Diagnosis Line: Incomplete right bundle branch block is now Diagnosis Line: Present Diagnosis Line: QT has lengthened Diagnosis Line: Confirmed by ADEN VILLAGRAN MD ([id number]) on Diagnosis Line: 11/15/2016 11:57:49 PM INTERPRETING MD: TYSHAWN ALEJO
[~2016-11-12 20:56] MED LIST changes: +CALCIUM 500 +1 EAC5 PO; +COREG12.5 MG PO; +ROCEPHIN2 G/VIAL INJ; +ZESTRIL2.5 M1 PO
[2016-11-12 21:39] LABS: URINE SOURCE CLEAN CATCH
[2016-11-12 21:48] LABS: BASOPHIL# 0.1 X10e3 (0-0.3); BASOPHIL% 0.6 % (0-2.5); DIFF IND NO; EOSINOPHIL# 0.1 X10e3 (0-0.7); EOSINOPHIL% 0.5 % (0.0-7.0); HEMATOCRIT 38.7 % (38.0-50.0); HEMOGLOBIN 12.8 gm/dL (13.0-16.0); LYMPHOCYTE# 1.3 X10e3 (1.0-3.5); MEAN CELL VOLUME 87.4 FL (83-96); MEAN CORPUSCULAR HGB CONC 33.2 g/dL (30-36); MEAN PLATELET VOLUME 9.6 FL (6.5-11.5); MONOCYTE# 0.9 X10e3 (0-1.0); MONOCYTE% 8.7 % (3.0-12.0); NEUTROPHIL# 8.5 X10e3 (1.5-7.1); NEUTROPHIL% 78.2 % (40-75); PLATELET COUNT 146 X10e3 (140-420); RED BLOOD COUNT 4.43 X10e (3.90-5.60); RED CELL DISTRIBUTION WIDTH 14.2 % (11.0-15.5); WHITE BLOOD COUNT 10.9 X10e3 (4.0-10.5)
[2016-11-12 21:50] LABS: URINE APPEARANCE CLEAR; URINE BILIRUBIN NEG (NEG); URINE BLOOD NEG (NEG); URINE COLOR DK YELLOW; URINE GLUCOSE 500 MG/DL (NEG); URINE KETONE NEG (NEG); URINE LEUKOCYTE ESTERASE TRACE (NEG); URINE NITRATE NEG (NEG); URINE PH 6.5 (5-8); URINE PROTEIN TRACE (NEG); URINE SPECIFIC GRAVITY 1.024 (1.003-1.035)
[2016-11-12 21:53] LABS: URINE BACTERIA AUWI NEG (NEGATIVE); URINE SQUAMOUS EPITHELIAL CELL NONE SEEN /[HPF]
[2016-11-12 21:56] LABS: CULTURE INDICATED? NO
[2016-11-12 22:00] LABS: INR 1.1; PROTHROMBIN TIME (PATIENT) 11.4 SECONDS (9.6-11.5)
[2016-11-12 22:01] LABS: AMPHETAMINE NEG (NEG); BARBITURATES NEG (NEG); BENZODIAZEPINES NEG (NEG); COCAINE NEG (NEG); MARIJUANA NEG (NEG); OPIATES NEG (NEG); TRICYCLIC ANTIDEPRESSANTS NEG (NEG); U METHADONE NEG (NEG)
[2016-11-12 22:16] LABS: ALBUMIN SERUM 2.4 g/dL (3.5-5.0); ALKALINE PHOSPHATASE 49 U/L (32-92); ALT (SGPT) 62 U/L (10-40); AST (SGOT) 49 U/L (10-42); BILIRUBIN, DIRECT 0.2 mg/dL (0.0-0.2); BILIRUBIN,INDIRECT 0.4 mg/dL (0.0-0.9); BILIRUBIN,TOTAL 0.6 mg/dL (0.2-2.0); BLOOD UREA NITROGEN 13 mg/dL (9-23); BUN/CREATININE RATIO 18.57; CALCIUM SERUM 7.5 mg/dL (8.4-10.2); CARBON DIOXIDE 23 mmol/L (22-31); CHLORIDE 100 mmol/L (100-111); CREATININE SERUM 0.7 mg/dL (0.6-1.4); GLOM FILT RATE Estimated ABOVE60 mL/min (>60); GLUCOSE FASTING 125 mg/dL (70-110); POTASSIUM 3.9 mmol/L (3.5-5.1); PROTEIN TOTAL SERUM 6.1 g/dL (6.0-8.3); SODIUM 132 mmol/L (135-145)
[2016-11-13 00:46] LABS: POC - CKMB <1.0 ng/mL (0.0-7.9); POC - TROPONIN <0.05 ng/mL (<=0.05)
== END 2016-11-13 01:26 | disposition home or self-care (01) ==
LOC: CED 20:56
PROVIDERS: Emergency Medicine
DX: J18.9 Pneumonia, unspecified organism (principal); F17.210 Nicotine dependence, cigarettes, uncomplicated; Z88.8 Allergy status to other drugs, medicaments and biological substances; Z79.899 Other long term (current) drug therapy
CPT/HCPCS: 36415; 71020; 80048; 80076; 80307; 81003; 82553; 83605; 84484; 85025; 85610; 85730; 87040; 93005; 96361; 96365; 96375; 99284; J0696; J1885